=== PATIENT | male | born 1990 | race Caucasian/White ===

== ENCOUNTER 2016-10-07 12:02 | Emergency (ER) | payer SELFPAY ==
[~2016-10-07] VITALS: Ht 177.8 cm; Wt 67.0 kg
[2016-10-07 12:03] VITALS: BP 132/76; PULSE 94; RESP 18; TEMP 97.9; O2SAT 96
--- NOTE | 2016-10-07 12:51 | PD ---
HPI Chief Complaint: ENT Complaint Time Seen by Provider: 12:48 Travel History International Travel<30 days: No Contact w/Intl Traveler<30days: No Traveled to known affect area: No History of Present Illness HPI 26-year-old male presents to emergency Department with complaint of sore throat 2 weeks. Reports painful swallowing with fluids and food. Denies coughing, choking, regurgitation with swallowing. Denies lump in throat, difficulty swallowing, unusual drooling. Reports swollen and tender glands in bilateral anterior neck. History of tonsillitis 6 months ago. Denies fever, chills, nausea, vomiting. Denies ear pain, nasal congestion, cough. Denies fatigue, feeling lethargic, headache, abdominal pain. That he took a 500 mg ciprofloxacin yesterday because he didn't want tonsillitis. No known relieving factors. Pain is aggravated with swallowing foods and liquids. No known allergies. History of Lyme's disease. No other modifying factors or associated signs and symptoms. PFSH Past Medical History Diminished Hearing: No Social History Alcohol Use: Yes Tobacco Use: Yes Substance Use: No Allergies-Medications (Allergen,Severity, Reaction): Coded Allergies: No Known Allergies (Unverified , 10/07/16) Reported Meds & Prescriptions Reported Meds & Active Scripts Active Ibuprofen 800 Mg Tab 800 Mg PO Q6HR PRN Magic Mouthwash Pediatric/Adult Liq (Lidocaine/Diphenhydr/Alum/Mg/Simeth) 60 Ml Susp 5 Ml SWISH-SWAL Q3HR PRN Each 5mL contains: Diphenydramine 4.5mg, Viscous Lidocaine 2% 10mg, Maalox Advanced Regular Strength 2.7ml Amoxicillin 500 Mg Cap 500 Mg PO BID 10 Days Review of Systems Except as stated in HPI: all other systems reviewed are Neg Physical Exam Narrative GENERAL: Well-nourished, well-developed patient, in no acute distress; afebrile , nontoxic-appearing SKIN: Warm and dry. No rash. HEAD: Atraumatic. Normocephalic. EYES: Pupils equal and round at 3 mm with brisk reaction. No scleral icterus. No injection or drainage. PERRLA. ENT: Mucosa pink and moist. Oropharynx with erythema; without edema or exudates. No uvular edema. No uvular, palatal, or tonsillar deviation. Airway patent. EARS: Bilateral pinnae and external canals appear within normal limits. Bilateral tympanic membranes without erythema, dullness or perforation. NECK: Trachea midline. Anterior cervical lymphadenopathy with tenderness on palpation. CARDIOVASCULAR: Regular rate and rhythm. No murmur appreciated. 3+ radial pulses. RESPIRATORY: No accessory muscle use. Clear to auscultation. Breath sounds equal bilaterally. GASTROINTESTINAL: Abdomen soft, non-tender, nondistended. Hepatic and splenic margins not palpable. Bowel sounds are active 4 quadrants. MUSCULOSKELETAL: No obvious deformities. No clubbing. No cyanosis. No edema. NEUROLOGICAL: Awake and alert. Oriented 3. No obvious cranial nerve deficits. Motor grossly within normal limits. Normal speech. Moves all extremities. 5/5 strength to all extremities. PSYCHIATRIC: Appropriate mood and affect; insight and judgment normal. Data Data Last Documented VS Vital Signs Date Time Temp Pulse Resp B/P Pulse Ox O2 Delivery O2 Flow Rate FiO2 10/07/16 12:03 97.9 94 18 132/76 96 Room Air Orders Group A Rapid Strep Screen (10/07/16 12:48) Strep Culture (Group A) (10/07/16 12:47) [facility] Medical Decision Making Medical Screen Exam Complete: Yes Emergency Medical Condition: Yes Medical Record Reviewed: Yes Differential Diagnosis Strep throat, tonsillitis, viral illness, mono, less likely peritonsillar abscess Narrative Course 26-year-old male with sore throat 2 weeks. Denies lump in throat, unusual drooling, difficulty swallowing. Reports painful swallowing. I did a swallow eval at the bedside and the patient was able to drink water with no choking, regurgitation, coughing. There is erythematous and without edema or exudate. Anterior cervical lymphadenopathy and with tenderness on palpation. After the patient a nonnarcotic for pain and he declined this time. Rapid strep ordered. 1315: Rapid strep negative. I will treat the patient with antibiotics secondary to length of illness. Amoxicillin, ibuprofen, Magic mouthwash prescribed for home. Patient verbalizes understanding and agreement with treatment plan. Patient is medically cleared and stable for discharge. Discussed reasons to return to the emergency department. Instructed patient to follow up with primary care provider. Patient agrees with treatment plan. The patients vital signs are stable and the patient is stable for outpatient follow- up and treatment. Patient discharged home, stable and in no acute distress. Diagnosis Primary Impression: Sore throat Referrals: Primary Care Physician Patient Instructions: General Instructions, Pharyngitis (ED) Departure Forms: Tests/Procedures, Work Release Enter return to work date: Oct 08, 2016 Additional Instructions: Take Antibiotics as prescribed and complete full course of antibiotics Get plenty of sleep/rest Rest your voice Drink plenty of fluids to prevent dehydration Use warm saltwater gargles to soothe throat pain Use an air humidifier/turn off ceiling fans Use throat lozenges as needed for sore throat Use ibuprofen or acetaminophen as needed to relieve pain and fever Follow-up with your primary care provider within 2-4 days Return immediately to the emergency department with worsening of symptoms Med/Other Pt SpecificInfo: Prescription(s) given Scripts Ibuprofen 800 Mg [id number] Mg PO Q6HR PRN (PAIN) #30 TAB Ref 0 Prov:Alissa Bennett 10/07/16 Oeirtokttsfhjoj-Kaffkbkdf-Lus-Alum-Simeth Liq (Magic Mouthwash Pediatric/Adult Liq)60 Ml Susp5 Ml SWISH-SWAL Q3HR PRN (SORE THROAT) #60 ML Ref 0 Each 5mL contains: Diphenydramine 4.5mg, Viscous Lidocaine 2% 10mg, Maalox Advanced Regular Strength 2.7ml Prov:Alissa Bennett 10/07/16 Amoxicillin 500 Mg [id number] Mg PO BID 10 Days Ref 0 Prov:Alissa Bennett 10/07/16 Disposition: 01 DISCHARGE HOME Condition: Stable Alissa Bennett Oct 07, 2016 12:51
[2016-10-07] MEDS ORDERED: IBUP800T23 PO (13:18)
[2016-10-07] MEDS ORDERED: AMOX500C PO (13:18)
[2016-10-07] MEDS ORDERED: MAGICPED SWISH-SWAL (13:18)
== END 2016-10-07 13:32 | disposition home or self-care (01) ==
LOC: NEPB 12:02
DX: J02.9 Acute pharyngitis, unspecified (principal); R59.0 Localized enlarged lymph nodes; Z72.0 Tobacco use
CPT/HCPCS: 87081; 87880; 99283